=== PATIENT | female | born 1985 | race Caucasian/White ===

== ENCOUNTER 2017-09-23 18:48 | Emergency (ER) | payer OTHER ==
[2017-09-23 19:08] VITALS: BP 134/78; PULSE 100; O2SAT 100
[2017-09-23] MEDS ORDERED: Rocephin 1000 MG INJ ONE (19:17)
--- NOTE | 2017-09-23 19:18 | ERPHSYRPT ---
- History of Present Illness Time Seen by Provider: 09/23/17 19:12 Source: patient Exam Limitations: no limitations Patient Subjective Stated Complaint: abscess in mouth on left side Triage Nursing Assessment: Pt c/o of left sided lower mouth pain, swelling and drainage, broken teeth, causing ear pain and jaw pain, afebrile, vitals wnl, appears to be in some pain Physician History: This is a 32-year-old white female with history of bronchitis, anxiety She arrives with complaint of pain in the left lower mandibular region symptoms for 3 days she states swelling since yesterday she states she feels like she is having draining in her mouth she has a carious tooth in the left anterior lateral mandibular region. She has no fevers she has no vomiting no diarrhea. No shortness of breath. Past medical history includes bronchitis and anxiety. Past surgical history includes . Social history includes tobacco use. Timing/Duration: day(s) (3 days) Severity: moderate Modifying Factors: Improves With: nothing Associated Symptoms: seizure, other (swelling left lower anterior lateral mandibular region), No nausea, No vomiting, No abdominal pain, No shortness of breath, No heartburn, No diaphoresis, No cough, No chills, No chest pain, No fever, No headaches, No loss of appetite, No malaise, No rash, No syncope, No weakness Allergies/Adverse Reactions: No Known Drug Allergies Allergy (Verified 09/23/17 19:08) Hx Tetanus, Diphtheria Vaccination/Date Given: Yes Hx Influenza Vaccination/Date Given: No Hx Pneumococcal Vaccination/Date Given: No - Review of Systems Constitutional: No Fever, No Chills Eyes: No Symptoms Ears, Nose, & Throat: Mouth Swelling, Other (dental pain), No Ear Pain, No Ear Discharge, No Hearing Changes, No Tinnitus, No Nose Pain, No Nose Congestion, No Nose Discharge, No Sinus Drainage, No Epistaxis, No Mouth Pain, No Loose Teeth, No Throat Pain, No Throat Swelling, No Hoarse, No Painful Swallowing, No Snoring, No Stridor Respiratory: No Cough, No Dyspnea Cardiac: No Chest Pain, No Edema, No Syncope Abdominal/Gastrointestinal: No Abdominal Pain, No Nausea, No Vomiting, No Diarrhea Genitourinary Symptoms: No Dysuria Musculoskeletal: No Back Pain, No Neck Pain Skin: No Rash Neurological: No Dizziness, No Focal Weakness, No Sensory Changes Psychological: No Symptoms Endocrine: No Symptoms All Other Systems: Reviewed and Negative - Past Medical History Pertinent Past Medical History: Yes Neurological History: No Pertinent History ENT History: No Pertinent History Cardiac History: No Pertinent History Respiratory History: Bronchitis Endocrine Medical History: No Pertinent History Musculoskeletal History: No Pertinent History GI Medical History: No Pertinent History History: No Pertinent History Psycho-Social History: Anxiety Female Reproductive Disorders: No Pertinent History Other Medical History: 32 wks pregancy - Past Surgical History Past Surgical History: Yes Neuro Surgical History: No Pertinent History Cardiac: No Pertinent History Respiratory: No Pertinent History Gastrointestinal: No Pertinent History Genitourinary: No Pertinent History Musculoskeletal: No Pertinent History Female Surgical History: Section Other Surgical History: x three - Social History Smoking Status: Current every day smoker How long have you smoked: 9 Exposure to second hand smoke: Yes Drug Use: none Patient Lives Alone: No - Female History Hx Last Menstrual Period: now Hx Now: No (tubes tied) - Nursing Vital Signs Nursing Vital Signs: Initial Vital Signs Temperature 98.8 F 09/23/17 18:57 Pulse Rate 100 H 09/23/17 18:57 Blood Pressure 134/78 09/23/17 18:57 O2 Sat by Pulse Oximetry 100 09/23/17 18:57 Pain Scale Pain Intensity 10 - Physical Exam General Appearance: mild distress Eye Exam: PERRL/EOMI, eyes nml inspection Ears, Nose, Throat Exam: TMs normal, pharynx normal, moist mucous membranes, other (swelling left lateral anterior mandibular region, carious tooth left lateral mandibular region corresponding to swelling), No pharyngeal erythema Neck Exam: normal inspection, non-tender, supple, full range of motion Respiratory Exam: normal breath sounds, lungs clear, No respiratory distress Cardiovascular Exam: regular rate/rhythm, normal heart sounds, normal peripheral pulses Gastrointestinal/Abdomen Exam: soft, normal bowel sounds, No tenderness, No mass Back Exam: normal inspection, normal range of motion, No CVA tenderness, No vertebral tenderness Extremity Exam: normal inspection, normal range of motion, pelvis stable Neurologic Exam: alert, oriented x 3, cooperative, 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, normal mood/affect, nml cerebellar function, nml station & gait, sensation nml, No motor deficits Skin Exam: normal color, warm, dry, No rash SpO2 Interpretation: normal (100%) SpO2: 100 Oxygen Delivery: Room Air - Course Nursing assessment & vital signs reviewed: Yes Ordered Tests: Medication Summary Discontinued Medications Generic Name Dose Route Start Last Admin Trade Name Brandon PRN Reason Stop Dose Admin Ceftriaxone Sodium 1,000 mg 09/23/17 19:12 Rocephin 1000 Mg Inj IM 09/23/17 19:13 STAT ONE Ceftriaxone Sodium Confirm 09/23/17 19:17 Rocephin 1000 Mg Inj Administered 09/23/17 19:18 Dose 1,000 mg .ROUTE .[employer]-MED ONE - Progress Progress: improved Progress Note: 09/23/17 19:16 This is a 32-year-old white female she arrives with complaint of pain in her left anterior lateral mandibular region she has swelling in the area and a corresponding carious tooth in the left lateral mandibular region. Symptoms for 3 days. Patient on examination has a carious tooth in the left lateral mandibular region corresponding swelling. Will go ahead and give patient Rocephin 1 g IM. Plan home with clindamycin, [place], she may also take Advil. Patient will need for cold packs and the area follow-up with her dentist. 09/23/17 19:20 patient's inspect report was checked no narcotic prescriptions for the past year. - Departure Time of Disposition: 19:17 Departure Disposition: Home Clinical Impression: Dental caries, Dental abscess Condition: Fair Critical Care Time: No Referrals: AMANDA MALAVE [Primary Care Provider] - Additional Instructions: Return home. Clindamycin 300 mg 3 times a day for 10 days. [place] 5/325 #10 one orally every 4-6 hours as needed for pain. Advil every 6 hours as needed for pain. Cold packs to area 24-48 hours. Avoid excessively hot or cold beverages. Follow-up with your dentist. Quit smoking. Return for acute distress or for severe symptoms. Prescriptions: Clindamycin HCl 300 mg PO TID #30 capsule Hydrocodone/Acetaminophen [[place] 5-325 Tablet] 1 tab PO Q4-6HPRN PRN #10 tablet MDD 6 tablets PRN Reason: Pain
[2017-09-23] MEDS ORDERED: XYLOCAINE 1% HCL 20 ML MDV ONE (19:19)
[2017-09-23] MEDS: Rocephin 1000 MG INJ IM ONE (19:24)
== END 2017-09-23 19:39 | disposition home or self-care (01) ==
LOC: ED 18:48
DX: K02.9 Dental caries, unspecified (principal); K04.7 Periapical abscess without sinus
CPT/HCPCS: 96372; 99283; J0696

== ENCOUNTER 2019-11-20 10:56 | Emergency (ER) | payer OTHER ==
[2019-11-20] MEDS ORDERED: Rocephin 1000 MG INJ IM ONE (11:23)
[2019-11-20] MEDS ORDERED: TORAdol 30 mg Injection IM ONE (11:23)
--- NOTE | 2019-11-20 11:23 | ERPHSYRPT ---
- History of Present Illness Time Seen by Provider: 11/20/19 11:20 Source: patient Exam Limitations: no limitations Patient Subjective Stated Complaint: pt's entire right side of the face is swollen due to a bad tooth Triage Nursing Assessment: Pt brought in to the ER by her boyfriend, hypertensive, pt in extreme pain, right side of face swollen, pt has an appt on Friday to have teeth removed, rates pain 11/26 Physician History: Patient is 34-year-old female came to the emergency room with complaining of right side swollen face. Patient has been recently seen by dentist and was told that she has a decay on her right upper premolar tooth and which needs to come out. She has an appointment next Friday but today her right side of the face got swollen and extremely painful so she came to the emergency room. Timing/Duration: gradual onset Severity: severe ENT Location: mouth Prearrival Treatment: no prearrival treatment Associated Symptoms: ear pain (R), jaw pain (right side), tooth pain (right side) Allergies/Adverse Reactions: No Known Drug Allergies Allergy (Verified 11/20/19 11:14) Hx Tetanus, Diphtheria Vaccination/Date Given: Yes Hx Influenza Vaccination/Date Given: No Hx Pneumococcal Vaccination/Date Given: No Travel Risk - International Travel Have you traveled outside of the country in past 3 weeks: No - Coronavirus Screening Are you exhibiting any of the following symptoms?: No Close contact with a COVID-19 positive Pt in past 14-21 Days: No - Review of Systems Constitutional: No Symptoms Eyes: No Symptoms Ears, Nose, & Throat: Mouth Pain, Mouth Swelling, Loose Teeth, Painful Swallowing Respiratory: No Symptoms Abdominal/Gastrointestinal: No Symptoms Genitourinary Symptoms: No Symptoms Musculoskeletal: No Symptoms - Past Medical History Pertinent Past Medical History: Yes Neurological History: No Pertinent History ENT History: No Pertinent History Cardiac History: No Pertinent History Respiratory History: Bronchitis Endocrine Medical History: No Pertinent History Musculoskeletal History: No Pertinent History GI Medical History: No Pertinent History History: No Pertinent History Psycho-Social History: Anxiety Female Reproductive Disorders: No Pertinent History Other Medical History: . - Past Surgical History Past Surgical History: Yes Neuro Surgical History: No Pertinent History Cardiac: No Pertinent History Respiratory: No Pertinent History Gastrointestinal: No Pertinent History Genitourinary: No Pertinent History Musculoskeletal: No Pertinent History Female Surgical History: Section Other Surgical History: x three, cyst cut off tailbone - Social History Smoking Status: Current every day smoker How long have you smoked: 9 Exposure to second hand smoke: Yes Drug Use: none Patient Lives Alone: No - Female History Hx Now: No (tubal) - Nursing Vital Signs Nursing Vital Signs: Initial Vital Signs Temperature 98.0 F 11/20/19 11:07 Pulse Rate 94 H 11/20/19 11:07 Blood Pressure 150/106 11/20/19 11:07 O2 Sat by Pulse Oximetry 100 11/20/19 11:07 Pain Scale Pain Intensity 10 - Physical Exam General Appearance: moderate distress Eye Exam: bilateral eye: normal inspection, PERRL, EOMI Ear Exam: bilateral ear: TM normal Nasal Exam: normal inspection Throat Exam: dental tenderness, excessive drooling, mandibular swelling, moist mucus membranes Neck Exam: normal inspection Cardiovascular/Respiratory Exam: chest non-tender Abdominal Exam: non-tender SpO2: 100 - Course Nursing assessment & vital signs reviewed: Yes Ordered Tests: Medication Summary Discontinued Medications Generic Name Dose Route Start Last Admin Trade Name Brandon PRN Reason Stop Dose Admin Ceftriaxone Sodium 1,000 mg 11/20/19 11:23 Rocephin 1000 Mg Inj IM 11/20/19 11:24 STAT ONE Ketorolac Tromethamine 60 mg 11/20/19 11:23 Toradol 30 Mg Injection IM 11/20/19 11:24 STAT ONE - Progress Progress: unchanged, pain not gone completely Counseled pt/family regarding: diagnosis, need for follow-up - Departure Departure Disposition: Home Clinical Impression: Dental caries, Dental abscess Condition: Stable Critical Care Time: No Referrals: AMANDA DELGADO [Primary Care Provider] - Instructions: Tooth Abscess (DC), Tooth Decay, Adult (DC), Dental Pain (DC) Additional Instructions: Discharge/Care Plan CALIN REDDY was seen on 11/20/19 in the Emergency Room. The patient was counseled regarding Diagnosis,Lab results, Imaging studies, need for follow up and when to return to the Emergency Room. Prescriptions given: Discharge Note I have spoken with the patient and/or caregivers. I have explained the patient's condition, diagnosis and treatment plan based on the information available to me at this time. I have answered the patient's and/or caregiver's questions and addressed any concerns. The patient and/or caregivers have as good understanding of the patient's diagnosis, condition and treatment plan as can be expected at this point. The vital signs have been stable. The patient's condition is stable and appropriate for discharge from the emergency department. The patient will pursue further outpatient evaluation with the primary care physician or other designated or consulting physician as outlined in the discharge instructions. The patient and/or caregivers are agreeable to this plan of care and follow-up instructions have been explained in detail. The patient and/or caregivers have received these instruction. The patient/and or caregivers are aware that any significant change in condition or worsening of symptoms should prompt an immediate return to this or the closest emergency department or call 911. Prescriptions: Smz/Tmp Ds Tablet [Bactrim Ds Tablet] 1 udtab PO BID #20 tablet Ketorolac Tromethamine [Toradol] 10 mg PO QID #20 tablet
[2019-11-20] MEDS ORDERED: XYLOCAINE 1% HCL 20 ML MDV ONE (11:26)
[2019-11-20] MEDS ORDERED: Rocephin 1000 MG INJ ONE (11:26)
[2019-11-20] MEDS ORDERED: TORAdol 30 mg Injection ONE (11:26)
[2019-11-20 11:39] VITALS: BP 145/105; PULSE 88; O2SAT 99
== END 2019-11-20 11:46 | disposition home or self-care (01) ==
LOC: ED 10:56
DX: K02.9 Dental caries, unspecified (principal); K04.7 Periapical abscess without sinus
CPT/HCPCS: 96372; 99284; J0696; J1885

== ENCOUNTER 2021-08-05 01:11 | Emergency (ER) | payer OTHER ==
--- NOTE | 2021-08-05 01:18 | ERPHSYRPT ---
- History of Present Illness Time Seen by Provider: 08/05/21 01:18 Historian: patient Exam Limitations: no limitations Physician History: This is a 36-year-old white female who has a history of bronchitis, anxiety issues and has had 3 C-sections in the past and presents with sudden onset of left suprapubic pain that was sudden and severe. It occurred within an hour to an hour and a half prior to arrival. Patient has never had anything like this before. She is not on any medication and she has no known drug allergies. Patient does admit to using methamphetamines as recent as 24 hours prior to this evaluation. Patient's last menstrual period ended approximately 1 week ago. She has had no vomiting but is nauseated. She is had no diarrhea. She has no chest pain or shortness of breath. She has no cough and she has not had any fevers. She has had no vaginal bleeding or abnormal vaginal discharge. Timing/Duration: today Activities at Onset: none Quality: sharpness, stabbing Abdominal Pain Onset Location: suprapubic Pain Radiation: no radiation (Left) Severity of Pain-Max: moderate Severity of Pain-Current: moderate Modifying Factors: Improves With: nothing Associated Symptoms: nausea, No chest pain, No diarrhea, No fever/chills, No loss of appetite, No shortness of breath Previous symptoms: no prior history, no recent treatment Allergies/Adverse Reactions: No Known Drug Allergies Allergy (Verified 08/05/21 01:46) Hx Tetanus, Diphtheria Vaccination/Date Given: Yes Hx Influenza Vaccination/Date Given: No Hx Pneumococcal Vaccination/Date Given: No Travel Risk - International Travel Have you traveled outside of the country in past 3 weeks: No - Coronavirus Screening Are you exhibiting any of the following symptoms?: No Close contact with a COVID-19 positive Pt in past 14-21 Days: No - Review of Systems Constitutional: No Symptoms Eyes: No Symptoms Ears, Nose, & Throat: No Symptoms Respiratory: No Symptoms Cardiac: No Symptoms Abdominal/Gastrointestinal: Abdominal Pain (Left suprapubic pain), Nausea, Constipation, No Vomiting, No Diarrhea Genitourinary Symptoms: No Symptoms Musculoskeletal: No Symptoms Skin: No Symptoms Neurological: No Symptoms Psychological: No Symptoms Endocrine: No Symptoms Hematologic/Lymphatic: No Symptoms Immunological/Allergic: No Symptoms All Other Systems: Reviewed and Negative - Past Medical History Pertinent Past Medical History: Yes Neurological History: No Pertinent History ENT History: No Pertinent History Cardiac History: No Pertinent History Respiratory History: Bronchitis Endocrine Medical History: No Pertinent History Musculoskeletal History: No Pertinent History GI Medical History: No Pertinent History History: No Pertinent History Psycho-Social History: Anxiety Female Reproductive Disorders: No Pertinent History Other Medical History: . - Past Surgical History Past Surgical History: Yes Neuro Surgical History: No Pertinent History Cardiac: No Pertinent History Respiratory: No Pertinent History Gastrointestinal: No Pertinent History Genitourinary: No Pertinent History Musculoskeletal: No Pertinent History Female Surgical History: Section Other Surgical History: x three, cyst cut off tailbone - Social History Smoking Status: Current every day smoker How long have you smoked: 9 Exposure to second hand smoke: Yes Drug Use: none Patient Lives Alone: No - Nursing Vital Signs Nursing Vital Signs: Initial Vital Signs Temperature 97.6 F 08/05/21 01:47 Pulse Rate 110 H 08/05/21 01:47 Respiratory Rate 26 H 08/05/21 01:47 Blood Pressure 143/96 08/05/21 01:47 Pain Scale Pain Intensity 0 - Physical Exam General Appearance: moderate distress, alert, anxiety Eye Exam: PERRL/EOMI, eyes nml inspection Ears, Nose, Throat Exam: normal ENT inspection, moist mucous membranes Neck Exam: normal inspection, non-tender, supple, full range of motion Respiratory Exam: normal breath sounds, lungs clear, airway intact, No chest tenderness, No respiratory distress Cardiovascular Exam: tachycardia Gastrointestinal/Abdomen Exam: soft, normal bowel sounds, tenderness (Left suprapubic region), guarding (Palpation of the left suprapubic region), rebound (Left suprapubic region) Pelvic Exam: not done Rectal Exam: not done Back Exam: normal inspection, normal range of motion, No CVA tenderness, No vertebral tenderness Extremity Exam: normal inspection, normal range of motion, pelvis stable Neurologic Exam: alert, oriented x 3, cooperative, 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, normal mood/affect, nml cerebellar function, nml station & gait, sensation nml Skin Exam: normal color, warm, dry Lymphatic Exam: No adenopathy SpO2 Interpretation: normal O2 Delivery: Room Air - Course Nursing assessment & vital signs reviewed: Yes Ordered Tests: Active Orders 24 hr Category Date Time Status IV Insertion STAT Care 08/05/21 01:56 Active ABDOMEN AND PELVIS W/0 CONTRAS [CT] Stat Exams 08/05/21 01:56 Taken AMYLASE Stat Lab 08/05/21 02:18 Completed CBC W DIFF Stat Lab 08/05/21 02:18 Completed CMP Stat Lab 08/05/21 02:18 Completed CULTURE,URINE Stat Lab 08/05/21 05:44 Received LIPASE Stat Lab 08/05/21 02:18 Completed UA W/RFX CULTURE Stat Lab 08/05/21 05:44 Completed Medication Summary Generic Name Dose Route Start Last Admin Trade Name Freq PRN Reason Stop Dose Admin Sodium Chloride 1,000 mls @ 100 mls/hr 08/05/21 03:15 08/05/21 03:08 Sodium Chloride 0.9% 1000 Ml IV 09/04/21 03:14 100 mls/hr .Q10H SHARON Administration Discontinued Medications Generic Name Dose Route Start Last Admin Trade Name Freq PRN Reason Stop Dose Admin Hydromorphone HCl 1 mg 08/05/21 01:56 08/05/21 02:01 Hydromorphone 1 Mg/1ml Inj 1 Mg/Ml Syringe IV 08/05/21 01:57 1 mg STAT ONE Administration Hydromorphone HCl Confirm 08/05/21 01:58 Hydromorphone 1 Mg/1ml Inj 1 Mg/Ml Syringe Administered 08/05/21 01:59 Dose 1 mg .ROUTE .STK-MED ONE Sodium Chloride 1,000 mls @ 999 mls/hr 08/05/21 01:56 08/05/21 03:10 Sodium Chloride 0.9% 1000 Ml IV 08/05/21 02:56 Infused .Q1H1M STA Infusion Sodium Chloride Confirm 08/05/21 01:59 Sodium Chloride 0.9% 1000 Ml Administered 08/05/21 02:00 Dose 1,000 mls @ ud .ROUTE .STK-MED ONE Potassium Chloride 20 meq in 100 mls @ 50 mls/hr 08/05/21 02:38 08/05/21 03:02 Potassium Chloride 20 Meq In Water 100ml IV 08/05/21 04:37 50 mls/hr STAT ONE Administration Potassium Chloride Confirm 08/05/21 03:01 Potassium Chloride 20 Meq In Water 100ml Administered 08/05/21 03:02 Dose 100 mls @ ud IV .STK-MED ONE Ketorolac Tromethamine 30 mg 08/05/21 03:25 08/05/21 03:39 Ketorolac Tromethamine 30 Mg/Ml Inj IV 08/05/21 03:26 30 mg STAT ONE Administration Ketorolac Tromethamine Confirm 08/05/21 03:38 Ketorolac Tromethamine 30 Mg/Ml Inj Administered 08/05/21 03:39 Dose 30 mg .ROUTE .STK-MED ONE Ondansetron HCl 4 mg 08/05/21 01:56 08/05/21 02:01 Ondansetron Hcl 4 Mg/2 Ml Vial IV 08/05/21 01:57 4 mg STAT ONE Administration Ondansetron HCl Confirm 08/05/21 01:58 Ondansetron Hcl 4 Mg/2 Ml Vial Administered 08/05/21 01:59 Dose 4 mg .ROUTE .STK-MED ONE Potassium Chloride 20 meq 08/05/21 02:38 08/05/21 03:08 Potassium Chloride Tab 10 Meq Tab PO 08/05/21 02:39 20 meq STAT ONE Administration Potassium Chloride Confirm 08/05/21 03:08 Potassium Chloride Tab 10 Meq Tab Administered 08/05/21 03:09 Dose 20 meq PO .STK-MED ONE Prochlorperazine Edisylate 10 mg 08/05/21 03:26 08/05/21 03:39 Prochlorperazine Edisylate 10 Mg/2 Ml Vial IV 08/05/21 03:27 10 mg STAT ONE Administration Prochlorperazine Edisylate Confirm 08/05/21 03:38 Prochlorperazine Edisylate 10 Mg/2 Ml Vial Administered 08/05/21 03:39 Dose 10 mg .ROUTE .STK-MED ONE Tamsulosin HCl 0.4 mg 08/05/21 03:27 08/05/21 03:39 Tamsulosin Hcl 0.4 Mg Cap PO 08/05/21 03:28 0.4 mg STAT ONE Administration Tamsulosin HCl Confirm 08/05/21 03:38 Tamsulosin Hcl 0.4 Mg Cap Administered 08/05/21 03:39 Dose 0.4 mg .ROUTE .STK-MED ONE Lab/Rad Data: Laboratory Result Diagrams 08/05/21 02:18 08/05/21 02:18 Laboratory Results 0608/05/21 08/05/21 Range/Units 05:44 02:18 02:18 WBC 9.3 (4.0-10.5) x10^3/uL RBC 4.74 (4.1-5.4) x10^6/uL Hgb 8.8 L (12.0-16.0) g/dL Hct 30.8 L (35-47) % MCV 65.0 L (78-100) fL MCH 18.6 L (26-32) pg MCHC 28.6 L (32-36) g/dL RDW 20.9 H (11.5-14.0) % Plt Count 314 (150-450) x10^3/uL MPV 9.8 (7.5-11.0) fL Gran % 63.7 (36.0-66.0) % Immature Gran % (Auto) 0.3 (0.00-0.4) % Nucleat RBC Rel Count 0.0 (0.00-0.1) % Eos # (Auto) 0.06 (0-0.5) x10^3/uL Immature Gran # (Auto) 0.03 (0.00-0.03) x10^3u/L Absolute Lymphs (auto) 2.64 (1.0-4.6) x10^3/uL Absolute Monos (auto) 0.58 (0.0-1.3) x10^3/uL Absolute Nucleated RBC 0.00 (0.00-0.01) x10^3u/L Lymphocytes % 28.4 (24.0-44.0) % Monocytes % 6.2 (0.0-12.0) % Eosinophils % 0.6 (0.00-5.0) % Basophils % 0.8 (0.0-0.4) % Absolute Granulocytes 5.93 (1.4-6.9) x10^3/uL Basophils # 0.07 (0-0.4) x10^3/uL Sodium 137 (137-145) mmol/L Potassium 2.9 L* (3.5-5.1) mmol/L Chloride 103 (98-107) mmol/L Carbon Dioxide 21 L (22-30) mmol/L Anion Gap 15.6 H (5-15) MEQ/L BUN 14 (7-17) mg/dL Creatinine 0.90 (0.52-1.04) mg/dL Estimated GFR > 60.0 ML/MIN Glucose 130 H (74-106) mg/dL Calcium 9.8 (8.4-10.2) mg/dL Total Bilirubin 0.40 (0.2-1.3) mg/dL AST 20 (14-36) U/L ALT 15 (0-35) U/L Alkaline Phosphatase 87 (38-126) U/L Serum Total Protein 7.3 (6.3-8.2) g/dL Albumin 4.3 (3.5-5.0) g/dL Amylase 46 (30-110) U/L Lipase 78 (23-300) U/L Urinalys Dipstick Clnc MAIN LAB Urine Color YELLOW (YELLOW) Urine Appearance CLOUDY (CLEAR) Urine pH 7.0 (5-6) Ur Specific [place] 1.025 (1.005-1.025) POC Urine Protein Conf NEGATIVE (Negative) Urine Ketones SMALL-15 (NEGATIVE) Urine Nitrite POSITIVE (NEGATIVE) Urine Bilirubin NEGATIVE (NEGATIVE) Urine Urobilinogen 0.2 (0-1) mg/dL Urine Leukocytes NEGATIVE (NEGATIVE) Urine WBC (Auto) 6-10 (0-5) /HPF Urine RBC (Auto) 16-25 (0-2) /HPF U Epithel Cells (Auto) FEW (FEW) /HPF Urine Bacteria (Auto) RARE (NEGATIVE) /HPF Urine RBC MODERATE (0-5) Jake/ul Urine Mucus (Auto) SLIGHT (NEGATIVE) /HPF Ur Culture Indicated? YES Urine Glucose NEGATIVE (NEGATIVE) mg/dL - Progress Progress: improved, pain not gone completely, re-examined Progress Note: 08/05/21 03:28 CAT scan of the abdomen and pelvis without contrast shows a left ureteral 3 mm calculus with hydroureter and hydronephrosis present. Counseled pt/family regarding: lab results, diagnosis, need for follow-up, rad results - Departure Departure Disposition: Home Clinical Impression: Anemia, Hypokalemia, Left ureteral calculus, UTI (urinary tract infection) Condition: Stable Critical Care Time: No Referrals: AMANDA MCCORMACK [Primary Care Provider] - Follow up/PCP as directed Additional Instructions: Drink plenty of fluids. Avoid illicit drug use. Take your potassium supplements as prescribed. Follow-up with your prescribing physician for further evaluation and management. Prescriptions: Hydrocodone/APAP 5/325 [[place] 5/325 mg] 1 each PO Q8H PRN PRN #6 tablet MDD 3 PRN Reason: Pain Ciprofloxacin [Cipro 500 MG] 500 mg PO BID #14 tablet Tamsulosin HCl 0.4 mg [Flomax 0.4 MG] 0.4 mg PO DAILY #7 cap Potassium Chloride Tab* [Klor Con] 10 meq PO DAILY #5 tab
[2021-08-05] MEDS ORDERED: Zofran 4 MG/2 ML VIAL IV ONE (01:56)
[2021-08-05] MEDS ORDERED: Sodium Chloride 0.9% 1000 ML 1,000 ML IV STA (01:56)
[2021-08-05] MEDS ORDERED: Hydromorphone 1 mg/ml Injection IV ONE (01:56)
[2021-08-05] MEDS ORDERED: Zofran 4 MG/2 ML VIAL ONE (01:58)
[2021-08-05] MEDS ORDERED: Hydromorphone 1 mg/ml Injection ONE (01:58)
[2021-08-05] MEDS ORDERED: Sodium Chloride 0.9% 1000 ML 1,000 ML ONE ×2 (01:59→03:08)
[2021-08-05 02:20] LABS: Absolute Neutrophil Ct (ANC) 5.93 x10^3/uL (1.4-6.9); Basophil (Absolute #) 0.07 x10^3/uL (0-0.4); Eosinophil % 0.6 % (0.00-5.0); Eosinophil (Absolute #) 0.06 x10^3/uL (0-0.5); Hematocrit 30.8 % (35-47); Hemoglobin 8.8 g/dL (12.0-16.0); Lymphocyte (Absolute #) 2.64 x10^3/uL (1.0-4.6); Lymphocytes % 28.4 % (24.0-44.0); Mean Corpuscular Hemoglobin 18.6 pg (26-32); Mean Corpuscular Hgb Concent. 28.6 g/dL (32-36); Mean Platelet Volume 9.8 fL (7.5-11.0); Monocyte (Absolute #) 0.58 x10^3/uL (0.0-1.3); Monocytes % 6.2 % (0.0-12.0); Neutrophil % 63.7 % (36.0-66.0); Platelet Count 314 x10^3/uL (150-450); Red Blood Count 4.74 x10^6/uL (4.1-5.4); Red Cell Distribution Width 20.9 % (11.5-14.0); White Blood Count 9.3 x10^3/uL (4.0-10.5)
[2021-08-05 02:34] LABS: ALBUMIN 4.3 g/dL (3.5-5.0); ALKALINE PHOSPHATASE 87 U/L (38-126); AMYLASE 46 U/L (30-110); ANION GAP 15.6 MEQ/L (5-15); BLOOD UREA NITROGEN 14 mg/dL (7-17); CHLORIDE 103 mmol/L (98-107); Calcium 9.8 mg/dL (8.4-10.2); Carbon Dioxide 21 mmol/L (22-30); EST GLOMERULAR FILTRATION RATE > 60.0 ML/MIN; Glucose 130 mg/dL (74-106); LIPASE 78 U/L (23-300); SGOT/AST 20 U/L (14-36); SGPT/ALT 15 U/L (0-35); SODIUM 137 mmol/L (137-145); Total Protein 7.3 g/dL (6.3-8.2)
[2021-08-05 02:37] LABS: Potassium 2.9 mmol/L (3.5-5.1)
[2021-08-05] MEDS ORDERED: Klor Con PO ONE ×2 (02:38→03:08)
[2021-08-05] MEDS ORDERED: POTASSIUM CHLORIDE 20 mEq IN WATER 100ML 20 MEQ/100 ML BAG IV ONE (02:38)
[2021-08-05] MEDS ORDERED: POTASSIUM CHLORIDE 20 mEq IN WATER 100ML 100 ML IV ONE (03:01)
[2021-08-05] MEDS ORDERED: Sodium Chloride 0.9% 1000 ML 1,000 ML IV SCH (03:15)
[2021-08-05] MEDS ORDERED: TORAdol 30 mg Injection IV ONE (03:25)
[2021-08-05] MEDS ORDERED: Compazine 10 MG/2 ML IV ONE (03:26)
[2021-08-05] MEDS ORDERED: Flomax 0.4 MG PO ONE (03:27)
[2021-08-05] MEDS ORDERED: Compazine 10 MG/2 ML ONE (03:38)
[2021-08-05] MEDS ORDERED: Flomax 0.4 MG ONE (03:38)
[2021-08-05] MEDS ORDERED: TORAdol 30 mg Injection ONE (03:38)
[2021-08-05 05:58] LABS: Appearance CLOUDY (CLEAR); Bilirubin NEGATIVE (NEGATIVE); Dipstick done @ ? MAIN LAB; Glucose NEGATIVE (NEGATIVE); Ketones SMALL-15 (NEGATIVE); Nitrite POSITIVE (NEGATIVE); Protein,Urine Dip NEGATIVE (Negative); RBC MODERATE Ery/ul (0-5); Specific Gravity 1.025 (1.005-1.025); Urobilinogen 0.2 mg/dL (0-1)
[2021-08-05 06:00] LABS: Bacteria RARE /HPF (NEGATIVE); Epithelial Cells FEW /HPF (FEW); Mucus SLIGHT /HPF (NEGATIVE); Urine Cultured Indicated? YES
[2021-08-05 06:19] VITALS: BP 120/60; PULSE 88; O2SAT 96
[2021-08-05] MEDS ORDERED: Levofloxacin 500 MG Tablet PO ONE (06:25)
[2021-08-05] MEDS ORDERED: Levofloxacin 500 MG Tablet ONE (06:33)
--- NOTE | 2021-08-05 07:59 | XRAY ---
Indication: Left suprapubic pain. Multiple contiguous axial images obtained through the abdomen and pelvis without contrast. Comparison: None Lung bases demonstrates mild bilateral dependent atelectasis. Heart not enlarged. Moderate-sized hiatal hernia with partial intrathoracic stomach. Noncontrasted stomach and bowel loops appear nonobstructed with normal appendix. No free fluid/air. 2-3 mm distal left ureter calculus approximately 1 cm proximal to the UVJ. Proximal left ureter is prominent up to 9 mm along with mild hydronephrosis and renal edema consistent with obstructive uropathy. No free fluid/air. Remaining liver, gallbladder, pancreas, spleen, adrenal glands, kidneys, ureters, bladder, uterus, and aorta are unremarkable for noncontrast exam. Osseous structures intact with minimal degenerative changes throughout the spine. Impression: 1. 2-3 mm distal left ureteral calculus producing obstructive uropathy as detailed. 2. Hiatal hernia with partial intrathoracic stomach. Comment: Preliminary interpretation made by [facility] [place]. No critical discrepancy.
== END 2021-08-05 06:46 | disposition home or self-care (01) ==
LOC: ED 01:11
DX: N13.2 Hydronephrosis with renal and ureteral calculous obstruction (principal); N39.0 Urinary tract infection, site not specified; D64.9 Anemia, unspecified; E87.6 Hypokalemia; R11.0 Nausea; Z72.0 Tobacco use; Z79.891 Long term (current) use of opiate analgesic
CPT/HCPCS: 36000; 36415; 74176; 80053; 81015; 82150; 83690; 85025; 87077; 87086; 87186; 96360; 96361; 96374; 96375; 99284; J1170; J1885; J2405; J3480; A9270-GY